=== PATIENT | male | born 1940 | race Caucasian/White ===

== ENCOUNTER 2016-08-17 21:54 | Emergency (ER) | payer OTHER ==
--- NOTE | 2016-08-17 23:40 | ED ORDER SUMMARY ---
..... Patient: CHRISTINA FAM OrderSheet [facility] VisitID: [id number] [address] [place] [address] 75y, M Registration Date/Time: 08/17/2016 ORDER SHEET Weight: 94.8 kg (stated) Allergies: Cocaine, Shellfish-derived Products GENERAL ORDERS: UA-Culture if indicated Urgent (22:16 08/17/2016 HBivens A.R.N.P.) (Ack 22:34 CHategekimana) (22:45 DBeyer R.N.) Bladder Scan (22:16 08/17/2016 HBivens A.R.N.P.) (22:45 DBeyer R.N.) CBC w Diff Urgent (22:20 08/17/2016 HBivens A.R.N.P.) (Ack 22:34 CHategekimana) CMP Urgent (22:20 08/17/2016 HBivens A.R.N.P.) (Ack 22:34 CHategekimana) Guzman Catheter (22:20 08/17/2016 HBivens A.R.N.P.) (22:45 DBeyer R.N.) US Scrotum/Testicular Urgent (22:56 08/17/2016 HBivens A.R.N.P.) (Ack 23:04 CHategekimana) Leg Bag (23:44 08/17/2016 HBivens A.R.N.P.) (0:15 DBeyer R.N.) MEDICATION ORDERS: IV FLUIDS: ORDER SHEET NOTES: [Electronically signed by Brent Rivera R.N. (00:43 08/18/2016)] [Electronically signed by Cheryl Tran.R.N.P. (13:03 08/19/2016)] [Electronically locked/signed by Brent Rivera R.N. (00:43 08/18/2016)]
--- NOTE | 2016-08-17 23:40 | ED CLINICAL REPORT ---
Clinical Report - Physicians/Mid Levels [facility] [address] [place] [address] 08/17/2016 21:56 Patient: CHRISTINA FAM Time Seen: 22:09; initial patient contact, initial documentation, patient care assumed. Arrived- By private vehicle. Historian- patient. HISTORY OF PRESENT ILLNESS Chief Complaint: URINARY RETENTION. This started yesterday and is still present and worsening. The problem is described as severe. No penile discharge, urinary frequency, testicular pain, urgency of urination or flank pain. No Sheldon catheter problem, inguinal swelling or problem with the foreskin. He has had mild burning discomfort with urination. It has occurred during urination. He has been unable to void, and voiding small amounts. Sexual history is noncontributory. (testes swollen and feel like a big balloon sack). Similar symptoms previously: None. Recent medical care: The patient was seen recently in the office. ( seeing dr for lymphedema and sores to L leg, on abx, ceoc??? something). REVIEW OF SYSTEMS No fever, flank pain, hematuria, abdominal pain or vomiting. No diarrhea, chest pain or difficulty breathing. All systems otherwise negative, except as recorded above. PAST HISTORY See nurses notes. 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 Not currently undergoing treatment. No previous treatment. ( Lymphedema). SOCIAL HISTORY Former smoker. No alcohol use or drug use. No recent travel. Is a local resident. FAMILY HISTORY Negative. ADDITIONAL NOTES The nursing notes have been reviewed with agreement regarding the chief complaint, HPI, ROS, PMH and patient medications and allergies. PHYSICAL EXAM Vital Signs: 08/17/2016 22:04 BP: 129/64. HR: 94. RR: 18. O2 saturation: 100%. Temp: 98.7 F. Have been reviewed as normal and appear to be correct. Appearance: Alert. Oriented X3. No acute distress. ENT: Normal external inspection. Pharynx normal. Neck: Neck supple. CVS: Heart sounds normal. Respiratory: No respiratory distress. Breath sounds normal. Abdomen: Soft and nontender. Bowel sounds normal. No organomegaly. No mass. Back: Normal external inspection. : Testes descended. Abnormal genitalia. Moderate right-sided and left-sided scrotal swelling with fluctuance. No tenderness, induration, erythema or ulceration. Does not transilluminate. No urethral discharge, genital lesion, phimosis, herpes-like lesions or paraphimosis. No tenderness present, hernia mass, scrotal mass, inguinal lymphadenopathy or Sheldon catheter. Skin: Skin warm and dry. Normal skin color. No rash. Normal skin turgor. Extremities: Lower extremity edema present. Extremities do not exhibit normal ROM. Severe 4+ pitting edema of the left lower extremity involving the foot, ankle, lower leg and thigh. Neuro: Oriented X 3. No motor deficit. No sensory deficit. LABS, X-RAYS, AND EKG Scrotal Sonogram: Negative exam. No abnormality noted. Negative study. verbal report given by 72xuan nabeel. Interpretation time: 2325. Laboratory Tests: UA-Culture if indicated: (TYRON: 08/17/2016 22:17) ( [facility] 08/17/2016 22:41) Final results Test Result Flag Units (Reference) URINE COLOR YELLOW URINE APPEARANCE CLEAR URINE GLUCOSE NEGATIVE (NEGATIVE) URINE BILIRUBIN NEGATIVE (NEGATIVE) URINE KETONE NEGATIVE (NEGATIVE) URINE SPECIFIC GRAVITY 1.010 (1.010-1.030) URINE PH 6.0 (5.0-8.0) URINE PROTEIN NEGATIVE (NEGATIVE) URINE UROBILINOGEN 0.2 EU/dL (0.2-1.0) URINE NITRITE NEGATIVE (NEGATIVE) URINE BLOOD NEGATIVE (NEGATIVE) URINE LEUK ESTERASE NEGATIVE (NEGATIVE) URINE RBC 0-1 rbc/hpf (0-1) URINE WBC 0-1 wbc/hpf (0-1) URINE EPITHELIAL CELLS 0-1 EPI/hpf (0-5) URINE BACTERIA NONE SEEN (NONE SEEN) URINE COMMENT CULT NOT INDICATED URINE CULTURES ARE SET-UP BASED ON THE FOLLOWING CRITERIA:POSITIVE NITRITEPOSITIVE LEUKOCYTE ESTERASEGREATER THAN 10 WHITE BLOOD CELLSMODERATE (2+) OR GREATER BACTERIA CBC w Diff: (TYRON: 08/17/2016 22:45) ( [facility] 08/17/2016 23:08) Final results Test Result Flag Units (Reference) WHITE BLOOD COUNT 11.0 K/uL (4.5-11.5) RED BLOOD COUNT 3.78 L M/uL (4.50-5.90) HEMOGLOBIN 9.2 L gm/dL (13.5-17.5) HEMATOCRIT 28.9 L % (41.0-53.0) MEAN CELL VOLUME 77 L fL (80-100) MEAN CORPUSCULAR HGB 25 L pg (26-34) MEAN CORPUSCULAR HGB CONC 32 g/dL (31-37) RED CELL DISTRIBUTION WIDTH 18.8 H % (11.6-14.8) PLATELET COUNT 286 K/uL (150-400) LYMPH % 13.4 L % (25-40) MONO % 5.4 % (3-14) GRANULOCYTE % 81.2 CMP: (TYRON: 08/17/2016 22:45) ( MsgRcvd 08/17/2016 23:18) Final results Test Result Flag Units (Reference) GLUCOSE 104 mg/dL (70-110) BUN 38 H mg/dL (7-18) CREATININE 2.1 H mg/dL (0.6-1.3) Estimated GFR 32.89 mL/min Estimated GFR- 39.86 mL/min Note: Persistent reduction over 3 months in eGFR<60 mL/min/1.73 m2 defines CKD. Patients with eGFR values>=60 mL/min/1.73 m2 may also have CKD if evidence ofpersistent proteinuria. Additional information may be foundat www.kidney.org. SODIUM 135 L mmol/L (136-145) POTASSIUM 4.9 mmol/L (3.5-5.1) CHLORIDE 102 mmol/L (98-107) CARBON DIOXIDE 25 mmol/L (21-32) CALCIUM 8.9 mg/dL (8.5-10.1) TOTAL PROTEIN 6.8 g/dL (6.4-8.2) ALBUMIN 2.6 L g/dL (3.3-5.0) BILIRUBIN, TOTAL 0.4 mg/dL (0.0-1.0) ALKALINE PHOSPHATASE 81 U/L (46-116) AST (SGOT) 13 L U/L (15-37) ALT (SGPT) 17 U/L (12-78) . PROGRESS AND PROCEDURES Course of Care: 22:21 08/17/16. nurse Brent reporting bladder scan has +999ml in bladder 22:56 08/17/16. nurse reporting scrotal swelling not going down with sheldon, and sheldon still draining uop 2330. had discussion with pt re need for admit, pt does not want to stay, does not want him to stay, tx options discussed, concern for renal issues, urinary retention and low blood counts, pt still does not want to stay, [facility] [place], pt also refusing rectal exam to check for bleeding, and says besides his occasional hemorrhoid problems, he has no blood or bleeding down there. Patient and spouse counseled in person regarding the patient's stable condition, test results, diagnosis and need for admission. 2330. Differential Diagnosis: Other possible considerations: urinary retention, kidney insufficiency/failure, uti, kidney stone, urospesis, hydrocele, chf. Above considerations are based on history, physical exam and laboratory data. Differential diagnosis was discussed with patient. Disposition: Discharged home in good and improved condition (23:40). Condition: good and stable. CLINICAL IMPRESSION Urinary retention. No drug induced urinary retention or enlarged prostate. Acute renal insufficiency. Mild acute anemia. INSTRUCTIONS Warnings: Further evaluation is necessary in order to recheck abnormal lab, conduct further tests and assess the possibility of serious illness. It is very important to follow up with a physician. GENERAL WARNINGS: Return or contact your physician immediately if your condition worsens or changes unexpectedly, if not improving as expected, or if other problems arise. Specifically return if problem worsens. Follow-up: Follow up with your doctor Friday even if well. Call for an appointment. Summary of care provided to patient and family. Understanding of the discharge instructions verbalized by patient. (Electronically signed by Cheryl Tran A.R.N.P. 08/19/2016 13:03)
--- NOTE | 2016-08-17 23:40 | ED NURSING NOTES ---
Clinical Report - Nurses [facility] [address] [place] [place] [address] 08/17/2016 21:56 Patient: CHRISTINA FAM TRIAGE Triage time 22:04 Aug 17 2016. Acuity: LEVEL 4. Chief Complaint: URINARY RETENTION. --22:07 Brent Rivera R.N. 22:04 08/17/16. BP: 129/64. HR: 94. RR: 18. O2 saturation: 100%. Temp: 98.7 F. Pain level now 0/10. --22:07 Brent Rivera R.N. Weight: 94.8 kg stated. Height/Length: 69 inches Per Patient. BMI: 30.9. --22:07 Brent Rivera R.N. Medications None. --22:06 Brent Rivera R.N. Allergies Cocaine. --22:06 Brent Rivera R.N. Shellfish-derived Products. --22:06 Brent Rivera R.N. History Arrived by private vehicle. ( Pt states he has not had very much urinary out put today). SOCIAL HX: Former smoker. No alcohol use or drug use. --22:07 Brent Rivera R.N. Interventions ID band on patient. To treatment room. --22:07 Brent Rivera R.N. PHYSICAL ASSESSMENT GENERAL / NEURO / PSYCH: Alert. Oriented X 4. Appears in no acute distress. RESPIRATORY: Respirations not labored. Breath sounds within normal limits. GI / : Abdominal tenderness. EXTREMITIES: 1+ edema of the left lower extremity involving the foot, ankle, lower leg and thigh. SKIN: Skin is warm and dry. --22:11 Brent Rivera R.N. NURSING PROGRESS NOTES Patient gowned. Reassurance given. Call light placed in reach. Side rails up x 1. Bed placed in lowest position. Brakes of bed on. Patient placed in chair. --22:12 Brent Rivera R.N. ( urinary sheldon placed 2000ml urine out initially). --22:39 Brent Rivera R.N. ( bladder scan 999+ provider notified). --22:41 Brent Rivera R.N. ( 1000 additional mls removed from cath). --23:21 Brent Rivera R.N. DISPOSITION / DISCHARGE Departure time: 00:16 Aug 18 2016. Bed requested. ( Pt verbalize understanding of cath care and follow up care, pt helped to vehicle in wheelchair). --00:16 Brent Rivera R.N. 00:15 08/18/16. BP: 108/50. HR: 80. RR: 18. O2 saturation: 96%. Temp: 97.9 F. Pain level now 0/10. --00:16 Brent Rivera R.N. Reviewed medication(s). Reviewed referrals. Patient verbalized understanding. Written instructions provided in Vincentian. The patient was discharged by the nurse practitioner. He was discharged home and accompanied by family. He left the Emergency Department ambulatory and via ambulance. Patient driving. --00:43 Brent Rivera R.N. Locked/Released at 08/18/2016 0:43 by Brent Rivera R.N.
--- NOTE | 2016-08-17 23:40 | ED NURSING NOTES ---
Clinical Report - Nurses [facility] [address] [place] [address] 08/17/2016 21:56 Patient: CHRISTINA FAM TRIAGE Triage time 22:04 Aug 17 2016. Acuity: LEVEL 4. Chief Complaint: URINARY RETENTION. --22:07 Brent Rivera R.N. 22:04 08/17/16. BP: 129/64. HR: 94. RR: 18. O2 saturation: 100%. Temp: 98.7 F. Pain level now 0/10. --22:07 Brent Rivera R.N. Weight: 94.8 kg stated. Height/Length: 69 inches Per Patient. BMI: 30.9. --22:07 Brent Rivera R.N. Medications None. --22:06 Brent Rivera R.N. Allergies Cocaine. --22:06 Brent Rivera R.N. Shellfish-derived Products. --22:06 Brent Rivera R.N. History Arrived by private vehicle. ( Pt states he has not had very much urinary out put today). SOCIAL HX: Former smoker. No alcohol use or drug use. --22:07 Brent Rivera R.N. Interventions ID band on patient. To treatment room. --22:07 Brent Rivera R.N. PHYSICAL ASSESSMENT GENERAL / NEURO / PSYCH: Alert. Oriented X 4. Appears in no acute distress. RESPIRATORY: Respirations not labored. Breath sounds within normal limits. GI / : Abdominal tenderness. EXTREMITIES: 1+ edema of the left lower extremity involving the foot, ankle, lower leg and thigh. SKIN: Skin is warm and dry. --22:11 Brent Rivera R.N. NURSING PROGRESS NOTES Patient gowned. Reassurance given. Call light placed in reach. Side rails up x 1. Bed placed in lowest position. Brakes of bed on. Patient placed in chair. --22:12 Brent Rivera R.N. ( urinary sheldon placed 2000ml urine out initially). --22:39 Brent Rivera R.N. ( bladder scan 999+ provider notified). --22:41 Brent Rivera R.N. ( 1000 additional mls removed from cath). --23:21 Brent Rivera R.N. DISPOSITION / DISCHARGE Departure time: 00:16 Aug 18 2016. Bed requested. ( Pt verbalize understanding of cath care and follow up care, pt helped to vehicle in wheelchair). --00:16 Brent Rivera R.N. 00:15 08/18/16. BP: 108/50. HR: 80. RR: 18. O2 saturation: 96%. Temp: 97.9 F. Pain level now 0/10. --00:16 Brent Rivera R.N. Reviewed medication(s). Reviewed referrals. Patient verbalized understanding. Written instructions provided in Spanish. The patient was discharged by the nurse practitioner. He was discharged home and accompanied by family. He left the Emergency Department ambulatory and via ambulance. Patient driving. --00:43 Brent Rivera R.N. Locked/Released at 08/18/2016 0:43 by Brent Rivera R.N.
--- NOTE | 2016-08-17 23:40 | ED ORDER SUMMARY ---
..... Patient: CHRISTINA FAM OrderSheet [facility] VisitID: [id number] [address] [place] [place] [address] 75y, M Registration Date/Time: 08/17/2016 ORDER SHEET Weight: 94.8 kg (stated) Allergies: Cocaine, Shellfish-derived Products GENERAL ORDERS: UA-Culture if indicated Urgent (22:16 08/17/2016 HBivens A.R.N.P.) (Ack 22:34 CHategekimana) (22:45 DBeyer R.N.) Bladder Scan (22:16 08/17/2016 HBivens A.R.N.P.) (22:45 DBeyer R.N.) CBC w Diff Urgent (22:20 08/17/2016 HBivens A.R.N.P.) (Ack 22:34 CHategekimana) CMP Urgent (22:20 08/17/2016 HBivens A.R.N.P.) (Ack 22:34 CHategekimana) Guzman Catheter (22:20 08/17/2016 HBivens A.R.N.P.) (22:45 DBeyer R.N.) US Scrotum/Testicular Urgent (22:56 08/17/2016 HBivens A.R.N.P.) (Ack 23:04 CHategekimana) Leg Bag (23:44 08/17/2016 HBivens A.R.N.P.) (0:15 DBeyer R.N.) MEDICATION ORDERS: IV FLUIDS: ORDER SHEET NOTES: [Electronically signed by Brent Rivera R.N. (00:43 08/18/2016)] [Electronically signed by Cheryl Tran.R.N.P. (13:03 08/19/2016)] [Electronically locked/signed by Brent Rivera R.N. (00:43 08/18/2016)]
--- NOTE | 2016-08-17 23:40 | ED CLINICAL REPORT ---
Clinical Report - Physicians/Mid Levels [facility] [address] [place] [place] [address] 08/17/2016 21:56 Patient: CHRISTINA FAM Time Seen: 22:09; initial patient contact, initial documentation, patient care assumed. Arrived- By private vehicle. Historian- patient. HISTORY OF PRESENT ILLNESS Chief Complaint: URINARY RETENTION. This started yesterday and is still present and worsening. The problem is described as severe. No penile discharge, urinary frequency, testicular pain, urgency of urination or flank pain. No Sheldon catheter problem, inguinal swelling or problem with the foreskin. He has had mild burning discomfort with urination. It has occurred during urination. He has been unable to void, and voiding small amounts. Sexual history is noncontributory. (testes swollen and feel like a big balloon sack). Similar symptoms previously: None. Recent medical care: The patient was seen recently in the office. ( seeing dr for lymphedema and sores to L leg, on abx, ceoc??? something). REVIEW OF SYSTEMS No fever, flank pain, hematuria, abdominal pain or vomiting. No diarrhea, chest pain or difficulty breathing. All systems otherwise negative, except as recorded above. PAST HISTORY See nurses notes. 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 Not currently undergoing treatment. No previous treatment. ( Lymphedema). SOCIAL HISTORY Former smoker. No alcohol use or drug use. No recent travel. Is a local resident. FAMILY HISTORY Negative. ADDITIONAL NOTES The nursing notes have been reviewed with agreement regarding the chief complaint, HPI, ROS, PMH and patient medications and allergies. PHYSICAL EXAM Vital Signs: 08/17/2016 22:04 BP: 129/64. HR: 94. RR: 18. O2 saturation: 100%. Temp: 98.7 F. Have been reviewed as normal and appear to be correct. Appearance: Alert. Oriented X3. No acute distress. ENT: Normal external inspection. Pharynx normal. Neck: Neck supple. CVS: Heart sounds normal. Respiratory: No respiratory distress. Breath sounds normal. Abdomen: Soft and nontender. Bowel sounds normal. No organomegaly. No mass. Back: Normal external inspection. : Testes descended. Abnormal genitalia. Moderate right-sided and left-sided scrotal swelling with fluctuance. No tenderness, induration, erythema or ulceration. Does not transilluminate. No urethral discharge, genital lesion, phimosis, herpes-like lesions or paraphimosis. No tenderness present, hernia mass, scrotal mass, inguinal lymphadenopathy or Sheldon catheter. Skin: Skin warm and dry. Normal skin color. No rash. Normal skin turgor. Extremities: Lower extremity edema present. Extremities do not exhibit normal ROM. Severe 4+ pitting edema of the left lower extremity involving the foot, ankle, lower leg and thigh. Neuro: Oriented X 3. No motor deficit. No sensory deficit. LABS, X-RAYS, AND EKG Scrotal Sonogram: Negative exam. No abnormality noted. Negative study. verbal report given by [employer] nabeel. Interpretation time: 2325. Laboratory Tests: UA-Culture if indicated: (TYRON: 08/17/2016 22:17) ( [facility] 08/17/2016 22:41) Final results Test Result Flag Units (Reference) URINE COLOR YELLOW URINE APPEARANCE CLEAR URINE GLUCOSE NEGATIVE (NEGATIVE) URINE BILIRUBIN NEGATIVE (NEGATIVE) URINE KETONE NEGATIVE (NEGATIVE) URINE SPECIFIC GRAVITY 1.010 (1.010-1.030) URINE PH 6.0 (5.0-8.0) URINE PROTEIN NEGATIVE (NEGATIVE) URINE UROBILINOGEN 0.2 EU/dL (0.2-1.0) URINE NITRITE NEGATIVE (NEGATIVE) URINE BLOOD NEGATIVE (NEGATIVE) URINE LEUK ESTERASE NEGATIVE (NEGATIVE) URINE RBC 0-1 rbc/hpf (0-1) URINE WBC 0-1 wbc/hpf (0-1) URINE EPITHELIAL CELLS 0-1 EPI/hpf (0-5) URINE BACTERIA NONE SEEN (NONE SEEN) URINE COMMENT CULT NOT INDICATED URINE CULTURES ARE SET-UP BASED ON THE FOLLOWING CRITERIA:POSITIVE NITRITEPOSITIVE LEUKOCYTE ESTERASEGREATER THAN 10 WHITE BLOOD CELLSMODERATE (2+) OR GREATER BACTERIA CBC w Diff: (TYRON: 08/17/2016 22:45) ( [facility] 08/17/2016 23:08) Final results Test Result Flag Units (Reference) WHITE BLOOD COUNT 11.0 K/uL (4.5-11.5) RED BLOOD COUNT 3.78 L M/uL (4.50-5.90) HEMOGLOBIN 9.2 L gm/dL (13.5-17.5) HEMATOCRIT 28.9 L % (41.0-53.0) MEAN CELL VOLUME 77 L fL (80-100) MEAN CORPUSCULAR HGB 25 L pg (26-34) MEAN CORPUSCULAR HGB CONC 32 g/dL (31-37) RED CELL DISTRIBUTION WIDTH 18.8 H % (11.6-14.8) PLATELET COUNT 286 K/uL (150-400) LYMPH % 13.4 L % (25-40) MONO % 5.4 % (3-14) GRANULOCYTE % 81.2 CMP: (TYRON: 08/17/2016 22:45) ( MsgRcvd 08/17/2016 23:18) Final results Test Result Flag Units (Reference) GLUCOSE 104 mg/dL (70-110) BUN 38 H mg/dL (7-18) CREATININE 2.1 H mg/dL (0.6-1.3) Estimated GFR 32.89 mL/min Estimated GFR- 39.86 mL/min Note: Persistent reduction over 3 months in eGFR<60 mL/min/1.73 m2 defines CKD. Patients with eGFR values>=60 mL/min/1.73 m2 may also have CKD if evidence ofpersistent proteinuria. Additional information may be foundat www.kidney.org. SODIUM 135 L mmol/L (136-145) POTASSIUM 4.9 mmol/L (3.5-5.1) CHLORIDE 102 mmol/L (98-107) CARBON DIOXIDE 25 mmol/L (21-32) CALCIUM 8.9 mg/dL (8.5-10.1) TOTAL PROTEIN 6.8 g/dL (6.4-8.2) ALBUMIN 2.6 L g/dL (3.3-5.0) BILIRUBIN, TOTAL 0.4 mg/dL (0.0-1.0) ALKALINE PHOSPHATASE 81 U/L (46-116) AST (SGOT) 13 L U/L (15-37) ALT (SGPT) 17 U/L (12-78) . PROGRESS AND PROCEDURES Course of Care: 22:21 08/17/16. nurse Brent reporting bladder scan has +999ml in bladder 22:56 08/17/16. nurse reporting scrotal swelling not going down with sheldon, and sheldon still draining uop 2330. had discussion with pt re need for admit, pt does not want to stay, does not want him to stay, tx options discussed, concern for renal issues, urinary retention and low blood counts, pt still does not want to stay, [facility] [place], pt also refusing rectal exam to check for bleeding, and says besides his occasional hemorrhoid problems, he has no blood or bleeding down there. Patient and spouse counseled in person regarding the patient's stable condition, test results, diagnosis and need for admission. 2330. Differential Diagnosis: Other possible considerations: urinary retention, kidney insufficiency/failure, uti, kidney stone, urospesis, hydrocele, chf. Above considerations are based on history, physical exam and laboratory data. Differential diagnosis was discussed with patient. Disposition: Discharged home in good and improved condition (23:40). Condition: good and stable. CLINICAL IMPRESSION Urinary retention. No drug induced urinary retention or enlarged prostate. Acute renal insufficiency. Mild acute anemia. INSTRUCTIONS Warnings: Further evaluation is necessary in order to recheck abnormal lab, conduct further tests and assess the possibility of serious illness. It is very important to follow up with a physician. GENERAL WARNINGS: Return or contact your physician immediately if your condition worsens or changes unexpectedly, if not improving as expected, or if other problems arise. Specifically return if problem worsens. Follow-up: Follow up with your doctor Friday even if well. Call for an appointment. Summary of care provided to patient and family. Understanding of the discharge instructions verbalized by patient. (Electronically signed by Cheryl Trna A.R.N.P. 08/19/2016 13:03)
--- NOTE | 2016-08-17 23:58 | DIAGNOSTIC IMAGING REPORT ---
PROCEDURE: US SCROTUM/TESTICLE INDICATION: SCROTAL SWELLING TECHNIQUE: Kennedy scale and color Doppler sonographic images through the scrotum were obtained. COMPARISON: None. FINDINGS: There is prominent edema of the scrotal skin. RIGHT TESTICLE: Measures 3.9 x 2.8 x 1.7 cm. There is a 2 mm calcification in the midportion of the skull. Normal vascularity. 5 mm epididymal cyst versus spermatocele. Mild hydrocele. LEFT TESTICLE: Measures 3.8 x 2.2 x 1.6 cm with normal echo structure and vascularity. Normal epididymis. Small hydrocele. IMPRESSION: 1. Scrotal edema 2. Mild right and small left hydroceles 3. No acute changes of the testicles or epididymes
--- NOTE | 2016-08-19 13:20 | ED MAR SUMMARY ---
..... Medication Administration Record [facility] [address] [place], [place] [id number] Patient: CHRISTINA FAM Visit ID: [id number] 75y, M Weight: 94.8 kg Height/Length: 69 in BMI: 30.9 ALLERGIES: Shellfish-derived Products, Cocaine
--- NOTE | 2016-08-19 13:20 | ED MED RECONCILIATION SUMMARY ---
Patient: CHRISTINA FAM Medication Reconciliation Report [facility] VisitID: [id number] [address] [place] [place] [address] 75y, M Registration Date/Time: 08/17/2016 Weight: 94.8 kg Height/Length: 69 in. BMI: 30.9 ALLERGIES: Cocaine, Shellfish-derived Products The patient's Home Medications are listed below: NONE. The source(s) of the original Home Medication information: Not obtained. The following Medications were given to the patient in the Emergency Department: None. The following Medications were prescribed to the patient: None.
--- NOTE | 2016-08-19 13:20 | ED DISCHARGE INSTRUCTIONS ---
Patient: CHRISTNIA FAM General Instructions [facility] VisitID: [id number] [place] [address] 75y, M Registration Date/Time: 08/17/2016 Urinary retention. No drug induced urinary retention or enlarged prostate. Acute renal insufficiency. Mild acute anemia. INSTRUCTIONS Warnings: Further evaluation is necessary in order to recheck abnormal lab, conduct further tests and assess the possibility of serious illness. It is very important to follow up with a physician. GENERAL WARNINGS: Return or contact your physician immediately if your condition worsens or changes unexpectedly, if not improving as expected, or if other problems arise. Specifically return if problem worsens. Follow-up: Follow up with your doctor Friday even if well. Call for an appointment. Summary of care provided to patient and family. Understanding of the discharge instructions verbalized by patient. ADDITIONAL INFORMATION Urinary Retention (Male) Urinary retention means that you are unable to pass urine, even though your bladder is full. The most common cause for this in males is a blockage of the bladder outlet by an enlarged prostate gland or a bladder infection. Certain medicines can also cause this problem. This condition is treated by insertion of a catheter into the bladder to drain the urine. This provides immediate relief. The catheter may need to remain in place for a few days to prevent a recurrence. The catheter has a balloon on the tip which was inflated after insertion. This prevents the catheter from falling out. Home Care: If an antibiotic was prescribed to treat a bladder infection, be sure to take it until finished, even if you are feeling better before it is all gone. If a catheter was left in place, it is important to keep bacteria from getting into the collection bag. Do not disconnect the catheter from the collection bag. Use a leg band to secure the drainage tube, so it does not pull on the catheter. Drain the collection bag when it becomes full using the drain spout at the bottom of the bag. Do not try to pull or remove your catheter. This will injure your urethra. It must be removed by a doctor or nurse. Follow Up with your doctor as advised. If a catheter was left in place, it can usually be removed within 3-7 days. Some conditions require that the catheter remains in longer. Follow up with your doctor to determine the right time for you. Get Prompt Medical Attention if any of the following occur: Fever of 100.4F (38C) or higher, or as directed by your healthcare provider Bladder or lower abdominal pain or fullness Abdominal swelling, nausea, vomiting or back pain Blood or urine leakage around the catheter Bloody urine coming from the catheter (if a new symptom) Weakness, dizziness or fainting Confusion or change in usual level of alertness If a catheter was left in place, return if: Catheter falls out Catheter stops draining for 6 hours Anemia [Type Not Specified, Adult] Red blood cells carry oxygen to the tissues of the body. Anemia is a condition where the size or number of red blood cells in the body is reduced. Iron is needed to make red blood cells. The most common cause of anemia is iron deficiency. This may be due to: i) Blood loss (heavy menstrual periods or bleeding from the stomach or intestines); or, ii) Not eating enough iron-containing foods. Other causes of anemia include certain vitamin deficiencies, chronic kidney disease or certain other chronic illnesses. Anemia causes a feeling of being tired and run down. When anemia becomes severe, the skin becomes pale and there is shortness of breath with exertion. Headaches, dizziness, leg cramps with exertion, drowsiness and fatigue are other common symptoms. Home Care: If you are having symptoms of anemia listed above: -- Do not overexert yourself. -- Talk to your doctor before flying on an airplane or traveling to high altitudes. Follow Up with your doctor as advised by our staff. Additional blood testing may be required to determine the exact cause of your anemia. If testing was done on this visit, it may take several days to get all of the results. You may call this facility or follow up with your own doctor to get the results. Get Prompt Medical Attention if any of the following occur: -- Shortness of breath or chest pain -- Worsening of dizziness, fainting -- Vomiting blood or passing red or black-colored stool Renal Insufficiency The role of the kidneys is to remove waste products and excess water from the body. When the kidneys do not function normally, waste products build up in the blood.The early stage of this process is called renal insufficiency . If renal insufficiency worsens it can lead to chronic renal failure. This allows excess water, waste and toxic substances to build up in the body. This can become a threat to life, requiring dialysis or a kidney transplant to stay alive. Diabetes is the leading causes of renal insufficiency. Other causes include high blood pressure, hardening of the arteries, lupus, inflammation of the blood vessels (vasculitis), prior viral and bacterial infections, and others. Certain uwhr-vqz-nxrmydo pain medicines can cause renal failure when taken often over a long period of time. These include aspirin, ibuprofen (Advil, Motrin) and related anti-inflammatory medicines. Home Care: If you have diabetes, talk to your doctor about the quality of your blood sugar control.Ask about any changes needed to your diet or medicines. If you have high blood pressure: Take your blood pressure medicine. Take up a regular exercise program that you enjoy.Check with your doctor to be sure your planned exercise program is right for you. Reduce your salt (sodium) intake.Your doctor can tell you how much salt per day is safe for you. If you are overweight, talk to your doctor about a weight loss plan. If you smoke, you must quit.Smoking worsens kidney disease.Talk to your doctor about ways to help you quit.For more information, visit the following links: www.smokefree.gov/pubs/clearing_the_air.pdf www.smokefree.gov www.quitnet.com Talk to your doctor about any dietary restrictions advised. In general, it is advisable to limit protein, salt, potassium and phosphorus.Avoid excess fluids. Do not add salt at the table and avoid salty foods.A calcium supplement may be prescribed to protect your bones from osteoporosis. Avoid the following over the counter medicines, or consult your doctor before using: Aspirin and anti-inflammatory drugs such as ibuprofen (Advil, Motrin), naprosyn (Aleve); [Short term use of acetaminophen (Tylenol) for fever or pain is okay.] Laxatives and antacids containing magnesium or aluminum (Mylanta, Maalox) Avoid Fleet or phosphosoda enemas which contain phosphorus Certain stomach acid-blocking medicine such as cimetidine (Tagamet), ranitidine (Zantac) Decongestants containing pseudoephedrine (such as some forms of Sudafed or Actifed) Herbal supplements Follow Up with your doctor or as advised by our staff. Contact one of the following for more information. [employer]([phone] [phone] www.aakp.org [employer] www.kidney.org Return Promptly or contact your doctor if any of the following occurs: Nausea or vomiting Severe weakness, dizziness, fainting, drowsiness or confusion Chest pain or shortness of breath Unexpected weight gain or swelling in the legs, ankles or around the eyes Heart beating fast, slow or irregularly Decrease or loss in urine output You have been given the following additional information: Urinary Retention, Male Anemia, Type Not Specified (Adult) Renal Insufficiency (Electronically signed by Cheryl Tran A.R.N.P. 08/19/2016 13:03)
--- NOTE | 2016-08-19 13:20 | ED MED RECONCILIATION SUMMARY ---
Patient: CHRISTINA FAM Medication Reconciliation Report [facility] VisitID: [id number] [address] [place] [place] [address] 75y, M Registration Date/Time: 08/17/2016 Weight: 94.8 kg Height/Length: 69 in. BMI: 30.9 ALLERGIES: Cocaine, Shellfish-derived Products The patient's Home Medications are listed below: NONE. The source(s) of the original Home Medication information: Not obtained. The following Medications were given to the patient in the Emergency Department: None. The following Medications were prescribed to the patient: None.
--- NOTE | 2016-08-19 13:20 | ED MAR SUMMARY ---
..... Medication Administration Record [facility] [address] [place], [place] [id number] Patient: CHRISTINA FAM Visit ID: [id number] 75y, M Weight: 94.8 kg Height/Length: 69 in BMI: 30.9 ALLERGIES: Shellfish-derived Products, Cocaine
== END 2016-08-18 00:16 | disposition home or self-care (01) ==
LOC: ED SRH 21:54
DX: N28.9 Disorder of kidney and ureter, unspecified (principal); R33.9 Retention of urine, unspecified; D64.9 Anemia, unspecified
CPT/HCPCS: 90004; 90100; 95059